=== PATIENT | male | born 1990 | race Two or more races ===

== ENCOUNTER 2019-07-01 15:38 | Inpatient (IN) | payer OTHER ==
[~2019-07-01] VITALS: Ht 167.6 cm; Wt 42.0 kg
[2019-07-01] VITALS (15 sets, daily range): BP systolic 79–133; BP diastolic 37–82
[2019-07-01] MEDS ORDERED: SODIUM CHLORIDE 0.9% 1000ML BAG (SEPSIS BOLUS) IV ONE (16:00)
[2019-07-01] MEDS ORDERED: PIPERACILLIN/TAZ 3.375G PREMIX 50 ML IV ONE (16:00)
[2019-07-01] MEDS ORDERED: LEVOFLOXACIN 750MG PREMIX 150 ML IV ONE (16:00)
[2019-07-01] MEDS ORDERED: DIATR MEGLU/DIATRIZOATE SOLN 30ML ONE (16:13)
[2019-07-01] MEDS ORDERED: ACETAMINOPHEN 650MG SUPP PR ONE (16:30)
[2019-07-01 16:31] LABS: HEMATOCRIT. 33.5 % (42.0-52.0); HEMOGLOBIN. 10.2 g/dL (14.0-18.0); MEAN CORPUSCULAR HEMOGLOBIN 27.9 pg (28.0-32.0); MEAN CORPUSCULAR VOLUME 91.5 fL (80.0-94.0); MEAN PLATELET VOLUME 6.8 fl (7.4-10.4); PLATELET 325 x1000/uL (130-400); RED BLOOD CELL COUNT 3.66 mill/uL (4.7-6.1)
[2019-07-01 16:36] LABS: CHLORIDE 111 mEq/L (98-107); INR 1.7; PROTHROMBIN TIME 17.2 sec (9.6-11.0)
[2019-07-01] MEDS ORDERED: KCL 20MEQ/100ML PREMIX 100 ML IV ONE (17:07)
[2019-07-01 17:13] LABS: PLATELET ESTIMATE NORMAL
[2019-07-01] MEDS ORDERED: SODIUM CHLORIDE 0.9% 1,000 ML IV NR (18:07)
[2019-07-01] MEDS ORDERED: DOPAMINE 400MG/250ML PREMIX 250 ML IV ONE ×2 (18:28→18:30)
[2019-07-01 19:43] LABS: BG BASE EXCESS -8.8 mmol/L (-2.0-2.0); BG CARBOXYHEMOGLOBIN 0.4 % (0.5-1.5); BG DEOXYHEMOGLOBIN 0.8 % (0.0-5.0); BG FRACTION INSPIRED OXYGEN 65; BG HCO3 ACT 15.8 mmol/L (22.0-26.0); BG METHEMOGLOBIN 0.5 % (0.0-1.5); BG OXYGEN SATURATION 99.2 % (92.0-98.5); BG OXYHEMOGLOBIN 98.3 % (94.0-97.0); BG PCO2 30.2 mmHg (35.0-45.0); BG PH 7.337 (7.350-7.450); BG PO2 198.2 mmHg (75.0-100.0); BG SAMPLE SITE RIGHT BRACHIAL; BG TOTAL HEMOGLOBIN 12.2 g/dL (12.0-18.0); BG VENT MODE MASK - SIMPLE
[2019-07-01 23:09] LABS: PHOSPHORUS 4.9 mg/dL (2.5-4.9)
[2019-07-01] MEDS ORDERED: ONDANSETRON HCL 4MG/2ML INJ IV PRN (23:45)
[2019-07-01] MEDS ORDERED: DOPAMINE 400MG/250ML PREMIX 250 ML IV PRN (23:45)
[2019-07-02] VITALS (80 sets, daily range): BP systolic 88–129; BP diastolic 45–90
[2019-07-02 00:10] LABS: HEMATOCRIT 36.4 % (42.0-52.0); HEMOGLOBIN 11.5 g/dL (14.0-18.0); PLATELET 314 x1000/uL (130-400); RED BLOOD CELL COUNT 4.24 mill/uL (4.7-6.1); RED CELL DISTRIBUTION WIDTH 27.4 % (11.6-14.6)
[2019-07-02] MEDS ORDERED: ACETAMINOPHEN 650MG/20.3ML UDC PO PRN (00:30)
[2019-07-02] MEDS ORDERED: OMEP1CAP2 PO (00:38)
[2019-07-02] MEDS ORDERED: POTA25TA8 MT (00:38)
[2019-07-02] MEDS ORDERED: OMEP1CAP PO (00:38)
[2019-07-02] MEDS ORDERED: EPOE20006 IJ (00:45)
[2019-07-02] MEDS ORDERED: SEVE0.8P PO (00:45)
[2019-07-02] MEDS ORDERED: [UNRECOGNIZED DRUG - OTHER] GT (00:45)
[2019-07-02] MEDS ORDERED: DILT30TA38 PO (00:45)
[2019-07-02] MEDS ORDERED: MIRT15TA6 PO (00:45)
[2019-07-02] MEDS ORDERED: PHENYTOIN 125 MG/5 ML (00:45)
[2019-07-02] MEDS ORDERED: METO25TA6 MT (00:45)
[2019-07-02] MEDS ORDERED: NEPVIT PO (00:45)
[2019-07-02] MEDS ORDERED: DOCU-138 PO (00:46)
[2019-07-02] MEDS ORDERED: PHENYLEPHRINE 20 MG in DEXT 5% WATER 248 ML IV PRN (01:00)
[2019-07-02] MEDS ORDERED: KCL 20MEQ/100ML PREMIX 100 ML IV NR (01:00)
[2019-07-02] MEDS: NOREPINEPHRINE 8 MG in DEXT 5% WATER 242 ML IV PRN ×2 (01:13→22:10)
[2019-07-02 05:38] LABS: BASOPHILS % 0.5 % (0.0-2.0); EOSINOPHILS % 0.2 % (0.0-5.0); HEMATOCRIT. 36.6 % (42.0-52.0); HEMOGLOBIN. 11.3 g/dL (14.0-18.0); LYMPHOCYTES % 7.7 % (20.0-50.0); MEAN CORPUSCULAR HEMOGLOBIN 26.8 pg (28.0-32.0); MEAN CORPUSCULAR VOLUME 86.5 fL (80.0-94.0); MEAN PLATELET VOLUME 6.7 fl (7.4-10.4); MONOCYTES % 10.8 % (2.0-8.0); NEUTROPHILS % 80.8 % (40.0-76.0); PLATELET 361 x1000/uL (130-400); RED BLOOD CELL COUNT 4.23 mill/uL (4.7-6.1); RED CELL DISTRIBUTION WIDTH 27.2 % (11.6-14.6)
[2019-07-02] MEDS ORDERED: PIPERACILLIN/TAZOBACTAM 2.25 G in DEXTROSE 5% WATER 50 ML IV SCH (06:00)
[2019-07-02] MEDS: PIPERACILLIN/TAZOBACTAM 2.25 G in DEXTROSE 5% WATER 50 ML IV SCH ×2 (06:12→18:02)
[2019-07-02] MEDS: PANTOPRAZOLE SODIUM 40 MG/VIAL IV SCH (08:25)
[2019-07-02] MEDS ORDERED: POTASSIUM CHLORIDE INJ 40 MEQ in DEXT 5% WATER 250 ML IV NR (10:00)
[2019-07-02] MEDS ORDERED: LIDOCAINE HCL 1% 20ML VIAL (Pyxis) INJ ONE (10:08)
[2019-07-02] MEDS ORDERED: SODIUM BICARBONATE 4% (2.4MEQ) 5ML VIAL IV ONE (10:09)
[2019-07-02 13:40] LABS: PHOSPHORUS 5.3 mg/dL (2.5-4.9)
[2019-07-02] MEDS: DEXT 5%/0.9% NACL 1,000 ML IV SCH (14:14)
[2019-07-02] MEDS: METRONIDAZOLE 500 MG PREMIX 100 ML IV SCH (18:01)
[2019-07-02] MEDS: MORPHINE SULFATE 2 MG/ML CPJ (NOT FOR IM USE) IV PRN (21:59)
[2019-07-03] VITALS (71 sets, daily range): BP systolic 86–126; BP diastolic 52–92
[2019-07-03] MEDS: METRONIDAZOLE 500 MG PREMIX 100 ML IV SCH ×3 (00:34→16:15)
[2019-07-03] MEDS: MORPHINE SULFATE 2 MG/ML CPJ (NOT FOR IM USE) IV PRN (03:13)
[2019-07-03] MEDS: NOREPINEPHRINE 8 MG in DEXT 5% WATER 242 ML IV PRN ×2 (04:27→23:02)
[2019-07-03 05:13] LABS: HEMATOCRIT. 35.6 % (42.0-52.0); HEMOGLOBIN. 11.2 g/dL (14.0-18.0); MEAN CORPUSCULAR HEMOGLOBIN 26.9 pg (28.0-32.0); MEAN CORPUSCULAR VOLUME 85.1 fL (80.0-94.0); MEAN PLATELET VOLUME 6.8 fl (7.4-10.4); PLATELET 352 x1000/uL (130-400); RED BLOOD CELL COUNT 4.18 mill/uL (4.7-6.1); RED CELL DISTRIBUTION WIDTH 26.8 % (11.6-14.6)
[2019-07-03 05:22] LABS: PHOSPHORUS 2.8 mg/dL (2.5-4.9)
[2019-07-03] MEDS: PIPERACILLIN/TAZOBACTAM 2.25 G in DEXTROSE 5% WATER 50 ML IV SCH ×2 (05:32→18:12)
[2019-07-03 08:55] LABS: PLATELET ESTIMATE NORMAL
[2019-07-03] MEDS: DEXT 5%/0.9% NACL 1,000 ML IV SCH (09:25)
[2019-07-03] MEDS: PANTOPRAZOLE SODIUM 40 MG/VIAL IV SCH (09:25)
[2019-07-03] MEDS ORDERED: POTASSIUM CHLORIDE INJ 40 MEQ in DEXT 5% WATER 250 ML IV NR ×2 (09:30→14:00)
[2019-07-03] MEDS ORDERED: DIATR MEGLU/DIATRIZOATE SOLN 120ML ONE (14:53)
[2019-07-03] MEDS ORDERED: NYSTATIN POWDER 15GM TOP SCH (15:30)
[2019-07-03] MEDS ORDERED: PHENYTOIN SODIUM EXTENDED 100MG CAPSULE PO SCH (21:00)
== END 2019-07-03 23:20 | disposition short-term general hospital (02) | DRG 871 ==
LOC: ER 15:38 → CVICU 19:14 → EDBEDREQTM 19:27 → EDBEDREQSVC 19:27 → EDBEDREQ 19:27 → ENRESERV 20:16 → CVICU 07-02 09:43
PROVIDERS: ADMIT Internal Medicine; ATTEND Internal Medicine
PROC: 5A1D70Z Performance of Urinary Filtration, Intermittent, Less than 6 Hours Per Day (ICD-10-PCS; principal; 2019-07-02)
PROC: 5A1D70Z Performance of Urinary Filtration, Intermittent, Less than 6 Hours Per Day (ICD-10-PCS; 2019-07-03)
DX: A41.9 Sepsis, unspecified organism (principal); R65.21 Severe sepsis with septic shock; N18.6 End stage renal disease; E43 Unspecified severe protein-calorie malnutrition; J96.11 Chronic respiratory failure with hypoxia; A04.72 Enterocolitis due to Clostridium difficile, not specified as recurrent; E87.2 Acidosis; I12.0 Hypertensive chronic kidney disease with stage 5 chronic kidney disease or end stage renal disease; Z94.0 Kidney transplant status; K56.609 Unspecified intestinal obstruction, unspecified as to partial versus complete obstruction; G93.40 Encephalopathy, unspecified; Z68.1 Body mass index [BMI] 19.9 or less, adult; E87.6 Hypokalemia; D63.8 Anemia in other chronic diseases classified elsewhere; E87.8 Other disorders of electrolyte and fluid balance, not elsewhere classified; G40.909 Epilepsy, unspecified, not intractable, without status epilepticus; I25.10 Atherosclerotic heart disease of native coronary artery without angina pectoris; Z82.41 Family history of sudden cardiac death; Z82.49 Family history of ischemic heart disease and other diseases of the circulatory system; Z86.74 Personal history of sudden cardiac arrest; Z93.1 Gastrostomy status; Z99.2 Dependence on renal dialysis; L89.220 Pressure ulcer of left hip, unstageable; R13.10 Dysphagia, unspecified; R47.02 Dysphasia; D64.9 Anemia, unspecified
CPT/HCPCS: 36415; 36600; 71045; 74018; 74176; 74250; 80048; 80185; 82375; 82550; 82805; 83605; 83735; 84100; 84145; 84484; 85027; 87493; 93005; 93970; 96374; 99285; C9113; J1265; J1956; J2270; J2543; J3480; J3490; J7030; J7042; J7060; Q9963